=== PATIENT | female | born 1975 | race Caucasian/White ===

== ENCOUNTER 2017-01-12 03:50 | Emergency (ER) | payer MEDICAID ==
[2017-01-12 04:07] VITALS: BP 131/59
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
[2017-01-12] MEDS ORDERED: TETANUS/DIPHTHERIA/PERTUSSIS 0.5 ML SYRINGE IM ONE ×2 (04:34)
[2017-01-12] MEDS ORDERED: LIDOCAINE 1% 50 ML MDV SUBQ STA ×2 (05:02→07:16)
[2017-01-12] MEDS ORDERED: LIDOCAINE 1% 2 ML VIAL ONE ×2 (05:10→06:46)
[2017-01-12] MEDS ORDERED: CEPHALEXIN 250 MG CAPSULE PO STA (07:05)
[2017-01-12] MEDS ORDERED: CEPHALEXIN 250 MG CAPSULE PO ONE (07:12)
== END 2017-01-12 07:15 | disposition home or self-care (01) ==
LOC: ED 03:50
DX: S71.112A Laceration without foreign body, left thigh, initial encounter (principal); S71.111A Laceration without foreign body, right thigh, initial encounter; W45.8XXA Other foreign body or object entering through skin, initial encounter; Y93.89 Activity, other specified; Y92.828 Other wilderness area as the place of occurrence of the external cause; Z23 Encounter for immunization; F17.200 Nicotine dependence, unspecified, uncomplicated
CPT/HCPCS: 12002; 90471; 99283; A9270